=== PATIENT | male | born 1945 ===

== ENCOUNTER 2017-04-18 10:19 | Day surgery (SDC) | payer OTHER ==
[2016-10-30 13:05] VITALS: BMI 27.3
[2017-04-18] MEDS ORDERED: Lactated Ringer's 500 ML IV ONE (10:37)
[2017-04-18] MEDS ORDERED: Propofol 10 mg/ml Inj (20 ML) ONE ×2 (10:46→11:03)
[2017-04-18 10:59] VITALS: O2SAT 99
[2017-04-18 11:49] VITALS: BP 101/58; PULSE 60; RESP 20; TEMP 97
== END 2017-04-18 13:43 | disposition home or self-care (01) ==
LOC: H.ENDO 10:19
PROVIDERS: ATTEND Internal Medicine Gastroenterology
DX: Z12.11 Encounter for screening for malignant neoplasm of colon (principal); I10 Essential (primary) hypertension; K64.0 First degree hemorrhoids

== ENCOUNTER 2017-07-31 15:41 | Emergency (ER) | payer SELFPAY ==
[2017-07-31 15:41] VITALS: BMI 27.3
[2017-07-31 16:13] VITALS: BP 126/77; PULSE 80; RESP 16; TEMP 98; O2SAT 97
[2017-07-31] MEDS ORDERED: Albuterol-Ipratrop 3 mg / 0.5 (3 ml) UD INH STA (16:39)
[2017-07-31] MEDS ORDERED: Albuterol-Ipratrop 3 mg / 0.5 (3 ml) UD ONE (16:56)
--- NOTE | 2017-07-31 17:00 | ED PDOC ---
HPI: CCC, URI, Sore Throat Time Seen by Provider: 07/31/17 16:05 Chief Complaint (Nursing): ENT Problem Chief Complaint (Provider): ENT Problem History Per: Patient History/Exam Limitations: no limitations Onset/Duration Of Symptoms: Days (x1) Current Symptoms Are (Timing): Still Present Additional Complaint(s): Benja Marte is a 71 year old male with previous medical history of hypertension and hypercholesterolemia, who presents to the emergency department with a complaint of bilateral ear pain, sore throat and nasal congestion ongoing since 1100 today. Denied any fever or chills. Patient stated he took an OTC herbal flu medication for symptom relief. PMD: Jagdeep Peterson MD Past Medical History Reviewed: Historical Data, Nursing Documentation, Vital Signs Vital Signs: Last Vital Signs Temp 98 F 07/31/17 16:11 Pulse 80 07/31/17 16:11 Resp 16 07/31/17 16:11 BP 126/77 07/31/17 16:11 Pulse Ox 97 07/31/17 17:03 - Medical History PMH: HTN, Hypercholesterolemia Denies: Diabetes, Chronic Kidney Disease - Surgical History Surgical History: Appendectomy - Family History Family History: States: Unknown Family Hx - Social History Current smoker - smoking cessation education provided: No Ex-Smoker (has not smoked in the last 12 months): No Alcohol: None Drugs: Denies - Home Medications Home Medications: Ambulatory Orders Medication Instructions Recorded Enalapril Maleate [Enalapril] 10 mg PO DAILY 06/09/15 - Allergies Allergies/Adverse Reactions: Allergies Allergy/AdvReac Type Severity Reaction Status Date / Time No Known Allergies Allergy Verified 07/31/17 16:11 Review of Systems ROS Statement: Except As Marked, All Systems Reviewed And Found Negative Constitutional: Negative for: Fever, Chills ENT: Positive for: Ear Pain (bilateral), Nose Congestion, Throat Pain Physical Exam - Reviewed Nursing Documentation Reviewed: Yes Vital Signs Reviewed: Yes - Physical Exam Appears: Positive for: Well, Non-toxic, No Acute Distress Head Exam: Positive for: ATRAUMATIC, NORMAL INSPECTION, NORMOCEPHALIC ENT: Positive for: TM Is/Are (Erythematous right TM; left TM is within normal limits). Negative for: Normal ENT Inspection, Sinus Pain/Drainage, Pharyngeal Erythema, Tonsillar Swelling Cardiovascular/Chest: Positive for: Regular Rate, Rhythm, Chest Non Tender Respiratory: Positive for: Normal Breath Sounds. Negative for: Decreased Breath Sounds, Wheezing, Respiratory Distress Neurologic/Psych: Positive for: Alert (x3), Oriented - ECG O2 Sat by Pulse Oximetry: 97 (RA) Pulse Ox Interpretation: Normal Medical Decision Making Medical Decision Making: Initial Impression: URROSSY Mosley Initial Plan: * Chest X-Ray * Duoneb 3ml INH CXR: NAD, as read by LACY Scribe Attestation: Documented by Narda Dorantes, acting as a scribe for Jessie Palma Provider Scribe Attestation: All medical record entries made by the Scribe were at my direction and personally dictated by me. I have reviewed the chart and agree that the record accurately reflects my personal performance of the history, physical exam, medical decision making, and the department course for this patient. I have also personally directed, reviewed, and agree with the discharge instructions and disposition. Disposition - Clinical Impression Clinical Impression: Otitis media, Upper respiratory infection - Patient ED Disposition Is Patient to be Admitted: No - Disposition Disposition: Routine/Home Disposition Time: 17:25 Condition: GOOD Forms: [employer] (Turkmen) - POA Present On Arrival: None
--- NOTE | 2017-07-31 17:04 | RAD ---
HISTORY: sob, cough x 3 w COMPARISON: 10/07/2016 TECHNIQUE: Chest PA and lateral FINDINGS: LUNGS: No active pulmonary disease. PLEURA: No significant pleural effusion identified. No pneumothorax apparent. CARDIOVASCULAR: Normal. OSSEOUS STRUCTURES: No significant abnormalities. VISUALIZED UPPER ABDOMEN: Normal. OTHER FINDINGS: None. IMPRESSION: No active disease.
== END 2017-07-31 17:32 | disposition home or self-care (01) ==
LOC: H.ER 15:41
DX: H66.90 Otitis media, unspecified, unspecified ear (principal); J06.9 Acute upper respiratory infection, unspecified; E78.00 Pure hypercholesterolemia, unspecified; I10 Essential (primary) hypertension

== ENCOUNTER 2017-10-10 10:26 | Emergency (ER) | payer SELFPAY ==
[2017-10-10 10:26] VITALS: BMI 27.3
[2017-10-10 11:06] VITALS: BP 139/83; PULSE 85; RESP 18; TEMP 98.9; O2SAT 97
[2017-10-10 12:22] LABS: HEMOGLOBIN 15.7 g/dL (12.0-18.0); MEAN CELL VOLUME 88.6 fl (80.0-94.0); MEAN CORPUSCULAR HEMOGLOBIN 30.1 pg (27.0-31.0); MEAN CORPUSCULAR HGB CONC 33.9 g/dL (33.0-37.0); RBC 5.22 Mil/uL (4.40-5.90); RED CELL DISTRIBUTION WIDTH 13.5 % (11.5-14.5); WHITE BLOOD COUNT 8.2 K/uL (4.8-10.8)
[2017-10-10 12:31] LABS: ALB/GLOB RATIO 1.4 (1.0-2.1); ALBUMIN 4.5 g/dL (3.5-5.0); ALT/SGPT 44 U/L (21-72); AST/SGOT 34 U/L (17-59); BLOOD UREA NITROGEN 15 mg/dl (9-20); CALCIUM 9.8 mg/dL (8.4-10.2); GFR AFRICAN-AMERICAN > 60; GFR NON-AFRICAN AMERICAN > 60
--- NOTE | 2017-10-10 13:33 | ED PDOC ---
HPI: CCC, URI, Sore Throat Time Seen by Provider: 10/10/17 11:14 Chief Complaint (Nursing): ENT Problem Chief Complaint (Provider): throat pain, runny nose, dizziness History Per: Patient History/Exam Limitations: no limitations Onset/Duration Of Symptoms: Days (3) Current Symptoms Are (Timing): Still Present Location Of Pain: None Sick Contacts (Context): None Associated Symptoms: Sore Throat. denies: Fever, Chills, Cough, Sputum, Myalgias, Vomiting, Diarrhea Ear Symptoms: Bilateral: None Past Medical History Reviewed: Historical Data, Nursing Documentation, Vital Signs Vital Signs: Last Vital Signs Temp 98.9 F 10/10/17 11:04 Pulse 85 10/10/17 11:04 Resp 18 10/10/17 11:04 BP 139/83 10/10/17 11:04 Pulse Ox 97 10/10/17 11:04 - Medical History PMH: HTN, Hypercholesterolemia Denies: Diabetes, Chronic Kidney Disease - Surgical History Surgical History: Appendectomy - Family History Family History: States: Unknown Family Hx - Living Arrangements Living Arrangements: With Family - Social History Current smoker - smoking cessation education provided: No Alcohol: None Drugs: Denies - Home Medications Home Medications: Ambulatory Orders Medication Instructions Recorded Enalapril Maleate [Enalapril] 10 mg PO DAILY 06/09/15 Amoxicillin/Clavulanate [Augmentin 1 tab PO BID #14 tab 07/31/17 875 MG-125 MG] Guaifenesin/Pseudoephedrne HCl 1 tab PO DAILY PRN #30 ter 07/31/17 [Mucinex D 600 mg-60 mg] Azithromycin 250 mg PO DAILY #6 tab 10/10/17 - Allergies Allergies/Adverse Reactions: Allergies Allergy/AdvReac Type Severity Reaction Status Date / Time No Known Allergies Allergy Verified 07/31/17 16:11 Review of Systems ROS Statement: Except As Marked, All Systems Reviewed And Found Negative Constitutional: Negative for: Fever, Chills Cardiovascular: Negative for: Chest Pain Respiratory: Negative for: Cough, Shortness of Breath Physical Exam - Reviewed Nursing Documentation Reviewed: Yes Vital Signs Reviewed: Yes - Physical Exam Appears: Positive for: Well, Non-toxic, No Acute Distress Head Exam: Positive for: ATRAUMATIC, NORMAL INSPECTION, NORMOCEPHALIC Skin: Positive for: Normal Color, Warm, DRY Eye Exam: Positive for: Normal appearance ENT: Positive for: Normal ENT Inspection Neck: Positive for: Normal, Painless ROM Cardiovascular/Chest: Positive for: Regular Rate, Rhythm Respiratory: Positive for: Normal Breath Sounds. Negative for: Accessory Muscle Use, Respiratory Distress Gastrointestinal/Abdominal: Positive for: Normal Exam, Bowel Sounds, Soft Back: Positive for: Normal Inspection Extremity: Positive for: Normal ROM Neurologic/Psych: Positive for: Alert, Oriented - Laboratory Results Result Diagrams: 10/10/17 12:15 10/10/17 12:15 - ECG O2 Sat by Pulse Oximetry: 97 Disposition - Clinical Impression Clinical Impression: Throat pain - Patient ED Disposition Is Patient to be Admitted: No Counseled Patient/Family Regarding: Diagnosis, Need For Followup, Rx Given - Disposition Disposition: Routine/Home Disposition Time: 13:37 Condition: GOOD Prescriptions: Azithromycin 250 mg PO DAILY #6 tab Instructions: Pharyngitis (ED) Print Language: SERBIAN
== END 2017-10-10 14:00 | disposition home or self-care (01) ==
LOC: H.ER 10:26
DX: J02.9 Acute pharyngitis, unspecified (principal); E78.00 Pure hypercholesterolemia, unspecified; I10 Essential (primary) hypertension

== ENCOUNTER 2018-04-29 09:41 | Emergency (ER) | payer SELFPAY ==
[2018-04-29 09:42] VITALS: BMI 27.3
[2018-04-29 09:53] VITALS: PULSE 72; RESP 19; TEMP 97.5; O2SAT 97
--- NOTE | 2018-04-29 10:13 | ED PDOC ---
HPI: Back Time Seen by Provider: 04/29/18 10:00 Chief Complaint (Nursing): Back Pain Chief Complaint (Provider): Back pain History Per: Patient History/Exam Limitations: no limitations Onset/Duration Of Symptoms: Days (2) Current Symptoms Are (Timing): Still Present Additional Complaint(s): Pt. with lower back and upper buttox pain. Ongoing after lifting a heavy box 2 days ago. No numbness, tingles, weakness, leg pain. No incontinence or constipation. No abd pain or dysuria. Asking for a work note. Ambulating with the pain. Past Medical History Reviewed: Nursing Documentation, Vital Signs Vital Signs: Last Vital Signs Temp 97.5 F L 04/29/18 09:52 Pulse 72 04/29/18 09:52 Resp 19 04/29/18 09:52 BP 151/84 H 04/29/18 09:52 Pulse Ox 97 04/29/18 09:52 - Medical History PMH: HTN, Hypercholesterolemia Denies: Diabetes, Chronic Kidney Disease - Surgical History Surgical History: Appendectomy - Family History Family History: States: Unknown Family Hx - Living Arrangements Living Arrangements: With Family - Social History Alcohol: None Drugs: Denies - Home Medications Home Medications: Ambulatory Orders Medication Instructions Recorded Enalapril Maleate [Enalapril] 10 mg PO DAILY 06/09/15 Amoxicillin/Clavulanate [Augmentin 1 tab PO BID #14 tab 07/31/17 875 MG-125 MG] Guaifenesin/Pseudoephedrne HCl 1 tab PO DAILY PRN #30 ter 07/31/17 [Mucinex D 600 mg-60 mg] Azithromycin 250 mg PO DAILY #6 tab 10/10/17 Ibuprofen [Motrin] 600 mg PO TID 7 Days tab 04/29/18 - Allergies Allergies/Adverse Reactions: Allergies Allergy/AdvReac Type Severity Reaction Status Date / Time No Known Allergies Allergy Verified 04/29/18 10:08 Review of Systems ROS Statement: Except As Marked, All Systems Reviewed And Found Negative Musculoskeletal: Positive for: Back Pain Physical Exam - Reviewed Nursing Documentation Reviewed: Yes Vital Signs Reviewed: Yes - Physical Exam Appears: Positive for: Non-toxic, No Acute Distress Head Exam: Positive for: ATRAUMATIC, NORMAL INSPECTION, NORMOCEPHALIC Skin: Positive for: Normal Color, Warm, DRY Eye Exam: Positive for: EOMI, Normal appearance, PERRL ENT: Positive for: Normal ENT Inspection Neck: Positive for: Normal, Painless ROM Cardiovascular/Chest: Positive for: Regular Rate, Rhythm Respiratory: Positive for: CNT, Normal Breath Sounds Gastrointestinal/Abdominal: Positive for: Normal Exam, Soft. Negative for: Tenderness Back: Positive for: Other (mild across lower back tufter). Negative for: L CVA Tenderness, R CVA Tenderness Extremity: Positive for: Normal ROM, Other (straight leg neg b/l). Negative for : Tenderness, Pedal Edema Neurologic/Psych: Positive for: Alert, Oriented - ECG O2 Sat by Pulse Oximetry: 97 Pulse Ox Interpretation: Normal - Radiology X-Ray: Read By Radiologist X-Ray Interpretation: Other (degenerative disc disease) - Progress ED Course And Treament: 1051: Stable. AAOx3. Pain free. Tolerated PO. Ambulated with no issues. Disposition - Clinical Impression Clinical Impression: Degenerative disc disease - Patient ED Disposition Is Patient to be Admitted: No Counseled Patient/Family Regarding: Studies Performed, Diagnosis, Need For Followup, Rx Given - Disposition Referrals: [facility] [Outside] - 04/30/18 Disposition: Routine/Home Disposition Time: 10:52 Condition: STABLE Additional Instructions: Return if not better in 3 days. Prescriptions: Ibuprofen [Motrin] 600 mg PO TID 7 Days tab Instructions: Degenerative Disc Disease Forms: [facility] ED School/Work Excuse Print Language: MARSHALLESE
--- NOTE | 2018-04-29 10:46 | RAD ---
Date of service: 04/29/2018 PROCEDURE: Radiographs of the Lumbar Spine. HISTORY: back pain COMPARISON: 06/11/2009 FINDINGS: BONES: The vertebral bodies are maintained in height. The transverse processes and posterior elements appear intact. Normal alignment is maintained. There is mild dextroscoliosis. This was not evident on earlier examination. DISC SPACES: There is narrowing of the L2-3 and L4-5 intervertebral disc spaces consistent with degenerative disc disease. The remaining disc spaces appear maintained in height. OTHER FINDINGS: None. IMPRESSION: Degenerative disc disease at L2-3 and L4-5. Mild dextroscoliosis. No evidence of fracture.
[2018-04-29 11:30] VITALS: BP 139/84
== END 2018-04-29 11:14 | disposition home or self-care (01) ==
LOC: H.ER 09:41
DX: M51.36 Other intervertebral disc degeneration, lumbar region (principal); I10 Essential (primary) hypertension; E78.00 Pure hypercholesterolemia, unspecified
CPT/HCPCS: 72114; 96372; 99282; J1885

== ENCOUNTER 2018-08-05 08:44 | Emergency (ER) | payer SELFPAY ==
[2018-08-05 08:44] VITALS: BMI 27.3
--- NOTE | 2018-08-05 11:30 | ED PDOC ---
HPI: Back Time Seen by Provider: 08/05/18 09:00 Chief Complaint (Nursing): Back Pain Chief Complaint (Provider): Back Pain History Per: [employer] (Xavier Manzano: [id number]) Onset/Duration Of Symptoms: Days (x2 days) Current Symptoms Are (Timing): Still Present Additional Complaint(s): Benja Joel is a 72 year old male with a past medical history of Hypertension, and Hyperlipidemia, who presents to the emergency department complaining of hip and back pain, worse when he walks, onset x2 days. Patient states he also feels numbness in the sole of his foot. He states he came in x5 months ago with similar symptoms and was given injection that helped him. pt is requesting that same injection for pain. 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 He was also seen in this ED on 07/30 complaining of lower back and upper buttock pain and was diagnosed with degenerative disc disease. He denies any urinary symptoms, fall, trauma, urinary or bowel incontinence. PMD: Dr. Jagdeep Peterson in [facility] Past Medical History Reviewed: Historical Data, Nursing Documentation, Vital Signs Vital Signs: Last Vital Signs Temp 98.2 F 08/05/18 08:59 Pulse 76 08/05/18 08:59 Resp 17 08/05/18 08:59 BP 131/80 08/05/18 08:59 Pulse Ox 97 08/05/18 08:59 - Medical History PMH: HTN, Hypercholesterolemia Denies: Diabetes, Chronic Kidney Disease Other PMH: Degenerative disc disease - Surgical History Surgical History: Appendectomy - Family History Family History: States: Unknown Family Hx - Social History Current smoker - smoking cessation education provided: No Ex-Smoker (has not smoked in the last 12 months): No Alcohol: None Drugs: Denies - Home Medications Home Medications: Ambulatory Orders Medication Instructions Recorded Enalapril Maleate [Enalapril] 10 mg PO DAILY 06/09/15 Amoxicillin/Clavulanate [Augmentin 1 tab PO BID #14 tab 07/31/17 875 MG-125 MG] Guaifenesin/Pseudoephedrne HCl 1 tab PO DAILY PRN #30 ter 07/31/17 [Mucinex D 600 mg-60 mg] RX: Azithromycin 250 mg PO DAILY #6 tab 10/10/17 Ibuprofen [Motrin] 600 mg PO TID 7 Days tab 04/29/18 - Allergies Allergies/Adverse Reactions: Allergies Allergy/AdvReac Type Severity Reaction Status Date / Time No Known Allergies Allergy Verified 04/29/18 10:08 Review of Systems ROS Statement: Except As Marked, All Systems Reviewed And Found Negative Genitourinary Male: Negative for: Dysuria, Incontinence (urinary and bowel ) Musculoskeletal: Positive for: Back Pain, Other (hip pain) Neurological: Positive for: Numbness (in sole of foot ) Physical Exam - Reviewed Nursing Documentation Reviewed: Yes Vital Signs Reviewed: Yes - Physical Exam Appears: Positive for: Non-toxic, No Acute Distress Head Exam: Positive for: ATRAUMATIC, NORMOCEPHALIC Skin: Positive for: Normal Color, Warm, Dry Eye Exam: Positive for: Normal appearance, EOMI, PERRL ENT: Positive for: Normal ENT Inspection Neck: Positive for: Normal, Painless ROM, Supple Cardiovascular/Chest: Positive for: Regular Rate, Rhythm. Negative for: Murmur Respiratory: Positive for: Normal Breath Sounds. Negative for: Respiratory Distress Gastrointestinal/Abdominal: Positive for: Normal Exam, Soft. Negative for: Tenderness Back: Positive for: Normal Inspection. 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 Negative for: Motor/Sensory Deficits, Aphasia, Facial Droop, Other (saddle anesthesia ) - ECG O2 Sat by Pulse Oximetry: 97 (RA) Pulse Ox Interpretation: Normal Medical Decision Making Medical Decision Making: Time: 10:21 Initial Plan: back pain, acute on chronic, no recent falls --Toradol 60 mg IM 13:09 Patient is eating food and feeling better. Scribe Attestation: Documented by Ross Fritz, acting as a scribe for Mauricio Cotto MD. Provider Scribe Attestation: All medical record entries made by the Scribe were at my direction and personally dictated by me. I have reviewed the chart and agree that the record accurately reflects my personal performance of the history, physical exam, medical decision making, and the department course for this patient. I have also personally directed, reviewed, and agree with the discharge instructions and disposition. Disposition - Clinical Impression Clinical Impression: Chronic back pain - Patient ED Disposition Is Patient to be Admitted: No Counseled Patient/Family Regarding: Studies Performed, Diagnosis, Need For Followup - Disposition Disposition: Routine/Home Disposition Time: 13:00 Condition: IMPROVED Additional Instructions: follow up in the clinic in 1-2 days for reevaluation return to the ED with any worsening or concerning symptoms Instructions: Chronic Pain Forms: [employer] [facility] (Pashto), [employer] (Romanian), [facility] ED School/Work Excuse Print Language: KOSOVAN
[2018-08-05 13:19] VITALS: BP 124/80; PULSE 58; RESP 16; TEMP 97.5
[2018-08-05 13:32] VITALS: O2SAT 97
== END 2018-08-05 13:17 | disposition home or self-care (01) ==
LOC: H.ER 08:44
DX: M54.9 Dorsalgia, unspecified (principal)
CPT/HCPCS: 96372; 99284; J1885

== ENCOUNTER 2018-09-20 07:14 | Emergency (ER) | payer SELFPAY ==
--- NOTE | 2018-09-20 07:54 | ED PDOC ---
HPI: Back Time Seen by Provider: 09/20/18 07:21 History Per: Patient Onset/Duration Of Symptoms: Days (2) Quality Of Discomfort: Aching Severity: Mild Previous Symptoms: Back Pain Associated Symptoms: None Exacerbating Factor(s): Movement Additional Complaint(s): Right sided low back pain x 2 days. Denies injury or heavy lifting. Pain is nonradiating, worse on movement. Denies urinary sxs. Denies fever. Had left sided chest pain on Saturday which has resolved. Denies SOB. Past Medical History - Medical History PMH: HTN, Hypercholesterolemia Denies: Diabetes, Chronic Kidney Disease - Surgical History Surgical History: Appendectomy - Family History Family History: States: Unknown Family Hx - Home Medications Home Medications: Ambulatory Orders Medication Instructions Recorded Enalapril Maleate [Enalapril] 10 mg PO DAILY 06/09/15 Amoxicillin/Clavulanate [Augmentin 1 tab PO BID #14 tab 07/31/17 875 MG-125 MG] Guaifenesin/Pseudoephedrne HCl 1 tab PO DAILY PRN #30 ter 07/31/17 [Mucinex D 600 mg-60 mg] Azithromycin 250 mg PO DAILY #6 tab 10/10/17 Ibuprofen [Motrin] 600 mg PO TID 7 Days tab 04/29/18 Cyclobenzaprine [Cyclobenzaprine 10 mg PO TID #10 tab 09/20/18 HCl] Naproxen [Naprosyn] 500 mg PO Q12H #20 tab 09/20/18 - Allergies Allergies/Adverse Reactions: Allergies Allergy/AdvReac Type Severity Reaction Status Date / Time No Known Allergies Allergy Verified 04/29/18 10:08 Review of Systems ROS Statement: Except As Marked, All Systems Reviewed And Found Negative Genitourinary Male: Negative for: Dysuria, Frequency Musculoskeletal: Positive for: Back Pain Neurological: Negative for: Weakness, Numbness Physical Exam - Reviewed Nursing Documentation Reviewed: Yes Vital Signs Reviewed: Yes - Physical Exam Appears: Positive for: Non-toxic, No Acute Distress Head Exam: Positive for: ATRAUMATIC, NORMAL INSPECTION, NORMOCEPHALIC Skin: Positive for: Normal Color, Warm, DRY Eye Exam: Positive for: EOMI, Normal appearance, PERRL ENT: Positive for: Normal ENT Inspection Neck: Positive for: Normal, Painless ROM Cardiovascular/Chest: Positive for: Regular Rate, Rhythm Respiratory: Positive for: CNT, Normal Breath Sounds Gastrointestinal/Abdominal: Positive for: Normal Exam, Soft Back: Positive for: Normal Inspection, Other (Right paralumbar tenderness and spasm). Negative for: Vertebral Tenderness Extremity: Positive for: Normal ROM Neurologic/Psych: Positive for: Alert, Oriented. Negative for: Motor/Sensory Deficits Medical Decision Making Medical Decision Making: Low back pain, most likely musculoskeltal, will obtain urine dip and LS spine. EKG reveals NSR with inverted T waves laterally. Does not appear to be acute, but no previous EKG to compare with. Will obtain Troponin but unlikely that this represents acute ischemia as pt is chest pain free today. Disposition - Clinical Impression Clinical Impression: Back strain, Low back pain - Patient ED Disposition Is Patient to be Admitted: No Counseled Patient/Family Regarding: Studies Performed, Diagnosis, Need For Followup, Rx Given - Disposition Referrals: [facility] [Outside] Disposition: Routine/Home Disposition Time: 10:14 Condition: FAIR Prescriptions: Cyclobenzaprine [Cyclobenzaprine HCl] 10 mg PO TID #10 tab Naproxen [Naprosyn] 500 mg PO Q12H #20 tab Instructions: Low Back Pain in Adults Print Language: GUYANESE
--- NOTE | 2018-09-20 09:48 | RAD ---
Date of service: 09/20/2018 PROCEDURE: Radiographs of the Lumbar Spine. HISTORY: Back pain COMPARISON: No prior. FINDINGS: BONES: Normal alignment. No listhesis. No fracture. No destructive bony lesion appreciable. DISC SPACES: Mild dextroscoliosis obscures evaluation of intervertebral disc heights which are definitively diminished L2-3 and L3-4 toward the left mild narrowing at L4-5 suspected though not definite. OTHER FINDINGS: None. IMPRESSION: Mild dextroscoliosis. Multilevel lumbar spondylosis. No fracture or spondylolisthesis evident.
[2018-09-20 11:40] VITALS: BP 155/95; PULSE 62; RESP 16; TEMP 97.7; O2SAT 98
== END 2018-09-20 11:10 | disposition home or self-care (01) ==
LOC: H.ER 07:14
DX: M54.5 Low back pain (principal); S39.012A Strain of muscle, fascia and tendon of lower back, initial encounter; X58.XXXA Exposure to other specified factors, initial encounter; Y92.89 Other specified places as the place of occurrence of the external cause; E78.00 Pure hypercholesterolemia, unspecified; I10 Essential (primary) hypertension

== ENCOUNTER 2018-11-02 01:40 | Emergency (ER) | payer SELFPAY ==
[2018-11-02 02:14] VITALS: O2SAT 97
[2018-11-02] MEDS ORDERED: Sodium Chloride 0.9% 1,000 ML IV STA (02:20)
[2018-11-02] MEDS ORDERED: Dexamethasone 10 MG in Sodium Chloride 0.9% 50 ML IV STA (02:28)
--- NOTE | 2018-11-02 02:45 | ED PDOC ---
History of Present Illness History of Present Illness: 72 year old male with a history of HTN presents to the ED with a fever and sore throat for three days. Patient reports worsening sore throat and fever associated with a dry cough and pain on swallowing. He took Amoxicillin and no other medications. Patient received the flu vaccine in August. PMD: Clinic HPI: Influenza Time Seen by Provider: 11/02/18 02:09 Chief Complaint: ENT Problem Chief Complaint (Provider): ENT Problem History Per: Patient Exam Limitations: no limitations Onset/Duration Of Symptoms: Days (x 3) Symptoms include: fever, sore throat, cough Risk factors for flu complications: Yes: adult > 65 years Past Medical History Reviewed: Historical Data, Nursing Documentation, Vital Signs Vital Signs: Last Vital Signs Temp 100.1 F H 11/02/18 02:10 Pulse 91 H 11/02/18 02:10 Resp 16 11/02/18 02:10 BP 142/85 11/02/18 02:10 Pulse Ox 97 11/02/18 02:10 - Medical History PMH: HTN, Hypercholesterolemia Denies: Diabetes, Chronic Kidney Disease - Surgical History Surgical History: Appendectomy - Family History Family History: States: Unknown Family Hx - Immunization History Hx Influenza Vaccination: Yes (in August) - Home Medications Home Medications: Ambulatory Orders Medication Instructions Recorded Enalapril Maleate [Enalapril] 10 mg PO DAILY 06/09/15 Amoxicillin/Clavulanate [Augmentin 1 tab PO BID #14 tab 07/31/17 875 MG-125 MG] Guaifenesin/Pseudoephedrne HCl 1 tab PO DAILY PRN #30 ter 07/31/17 [Mucinex D 600 mg-60 mg] RX: Azithromycin 250 mg PO DAILY #6 tab 10/10/17 Ibuprofen [Motrin] 600 mg PO TID 7 Days tab 04/29/18 Cyclobenzaprine [Cyclobenzaprine 10 mg PO TID #10 tab 09/20/18 HCl] Naproxen [Naprosyn] 500 mg PO Q12H #20 tab 09/20/18 Benzonatate [Tessalon Perle] 100 mg PO TID PRN #15 capsule 11/02/18 Oseltamivir Cap [Tamiflu] 75 mg PO BID #10 cap 11/02/18 RX: predniSONE [predniSONE Tab] 60 mg PO QAM #12 tab 11/02/18 - Allergies Allergies/Adverse Reactions: Allergies Allergy/AdvReac Type Severity Reaction Status Date / Time No Known Allergies Allergy Verified 04/29/18 10:08 Review of Systems ROS Statement: Except As Marked, All Systems Reviewed And Found Negative Constitutional: Positive for: Fever ENT: Positive for: Throat Pain, Throat Swelling Respiratory: Positive for: Cough Physical Exam - Reviewed Nursing Documentation Reviewed: Yes Vital Signs Reviewed: Yes - Physical Exam Appears: Positive for: No Acute Distress, Uncomfortable (febrile) Head Exam: Positive for: ATRAUMATIC, NORMAL INSPECTION, NORMOCEPHALIC Skin: Positive for: Normal Color, Warm, Dry. Negative for: Rash Eye Exam: Positive for: EOMI, Normal appearance, PERRL ENT: Positive for: Tonsillar Swelling (bilateral tonsillar swelling). Negative for: Tonsillar Exudate Neck: Positive for: Painless ROM ((+) bilateral anterior cervical lymphade nopathy). Negative for: Normal, Supple Cardiovascular/Chest: Positive for: Tachycardia (with regular rhythm) Respiratory: Positive for: Normal Breath Sounds. Negative for: Respiratory Distress Gastrointestinal/Abdominal: Positive for: Normal Exam, Soft. Negative for: Tenderness Back: Positive for: Normal Inspection. Negative for: L CVA Tenderness, R CVA Tenderness Extremity: Positive for: Normal ROM (x 4). Negative for: Deformity Neurologic/Psych: Positive for: Alert, Oriented (x 3). Negative for: Motor/Sensory Deficits Medical Decision Making Medical Decision Makin:19 Impression: 72 year old male with acute pharyngitis Initial Plan: --CMP --CBC --lactic acid --CXR --Decadron 10 mg IV --NS IV 1,000 mls --Toradol 15 mg IM --Tylenol 975 mg PO --Blood cx --Influenza AB --Rapid strep Scribe Attestation: Documented by Olivia Molina acting as a scribe for Nikolas Ernandez MD Provider Scribe Attestation: All medical record entries made by the Scribe were at my direction and personally dictated by me. I have reviewed the chart and agree that the record accurately reflects my personal performance of the history, physical exam, medical decision making, and the department course for this patient. I have also personally directed, reviewed, and agree with the discharge instructions and disposition. - Laboratory Results Result Diagrams: 11/02/18 02:50 11/02/18 02:50 - ECG O2 Sat by Pulse Oximetry: 97 Disposition - Clinical Impression Clinical Impression: Influenza-like illness - Disposition Disposition: Routine/Home Disposition Time: 04:00 Condition: STABLE Prescriptions: Benzonatate [Tessalon Perle] 100 mg PO TID PRN #15 capsule PRN Reason: Cough Oseltamivir Cap [Tamiflu] 75 mg PO BID #10 cap RX: predniSONE [predniSONE Tab] 60 mg PO QAM #12 tab Instructions: Flu, Viral Syndrome (DC) Forms: [email or web address] [facility] (Maltese), [facility] ED School/Work Excuse Print Language: VENEZUELAN
[2018-11-02 03:22] LABS: BASO # 0.1 K/uL (0.0-0.2); BASO % 0.7 % (0.0-2.0); EOS # 0.2 K/uL (0.0-0.7); EOS % 2.1 % (0.0-4.0); HEMOGLOBIN 15.4 g/dL (12.0-18.0); LYMPH # 1.4 K/uL (1.0-4.3); LYMPH % 16.5 % (20.0-40.0); MEAN CELL VOLUME 88.8 fl (80.0-94.0); MEAN CORPUSCULAR HGB CONC 33.7 g/dL (33.0-37.0); MEAN PLATELET VOLUME 9.5 fl (7.2-11.7); MONO # 0.5 K/uL (0.0-0.8); MONO % 6.1 % (0.0-10.0); NEUT # 6.1 K/uL (1.8-7.0); NEUT % 74.6 % (50.0-75.0); RBC 5.14 Mil/uL (4.40-5.90); RED CELL DISTRIBUTION WIDTH 13.7 % (11.5-14.5); WHITE BLOOD COUNT 8.2 K/uL (4.8-10.8)
[2018-11-02 03:34] LABS: ALB/GLOB RATIO 1.3 (1.0-2.1); ALBUMIN 4.5 g/dL (3.5-5.0); ALT/SGPT 45 U/L (21-72); AST/SGOT 30 U/L (17-59); BLOOD UREA NITROGEN 16 mg/dl (9-20); CALCIUM 9.4 mg/dL (8.4-10.2); GFR NON-AFRICAN AMERICAN > 60
[2018-11-02 05:30] VITALS: BP 125/83; PULSE 82; RESP 18; TEMP 98.2
--- NOTE | 2018-11-02 11:03 | RAD ---
Date of service: 11/02/2018 HISTORY: cough COMPARISON: 08/05/2017 FINDINGS: LUNGS: No active pulmonary disease. PLEURA: No significant pleural effusion identified, no pneumothorax apparent. CARDIOVASCULAR: No radiographic findings to suggest acute or significant cardiovascular disease. Atherosclerotic calcifications identified primarily aortic arch. OSSEOUS STRUCTURES: No significant abnormalities. VISUALIZED UPPER ABDOMEN: Normal. OTHER FINDINGS: None. IMPRESSION: No active disease. No significant interval change compared to the prior examination(s).
== END 2018-11-02 04:30 | disposition home or self-care (01) ==
LOC: H.ER 01:40
DX: J11.1 Influenza due to unidentified influenza virus with other respiratory manifestations (principal); I10 Essential (primary) hypertension
CPT/HCPCS: 71045; 80053; 83605; 85025; 87040; 87070; 87430; 87804; 96361; 96374; 96375; 99283; J1100; J1885; J7030

== ENCOUNTER 2019-01-06 09:00 | Emergency (ER) | payer SELFPAY ==
[2019-01-06 09:06] VITALS: BP 152/81; PULSE 79; RESP 17; TEMP 98.5; O2SAT 98
[2019-01-06 09:07] VITALS: BMI 26.2
--- NOTE | 2019-01-06 10:59 | ED PDOC ---
HPI: Back Time Seen by Provider: 01/06/19 09:14 Chief Complaint (Nursing): Back Pain Chief Complaint (Provider): Back pain, chronic History Per: Patient History/Exam Limitations: no limitations Onset/Duration Of Symptoms: Persistent Current Symptoms Are (Timing): Still Present Previous Symptoms: Chronic Pain Additional History Per: Patient Additional Complaint(s): 73yo male, with history of hypertension and high cholesterol, comes to ER reporting upper back pain, present intermittently for the past month. Patient is being followed by Dr. Peterson, was given medication for his pain with intermittent relief. Patient also reports "tingly feeling" but states that has been unchanged for a month as well. He also reports a chronic cough x 1 month with rib pain. He states he is occasionally unsteady while walking, but denies any trauma. Overall, patient denies any changes in his symptoms over the past month. Past Medical History Reviewed: Historical Data, Nursing Documentation, Vital Signs Vital Signs: Last Vital Signs Temp 98.5 F 01/06/19 09:05 Pulse 79 01/06/19 09:05 Resp 17 01/06/19 09:05 BP 152/81 H 01/06/19 09:05 Pulse Ox 98 01/06/19 09:05 - Medical History PMH: HTN, Hypercholesterolemia Denies: Diabetes, Chronic Kidney Disease - Surgical History Surgical History: Appendectomy - Family History Family History: States: Unknown Family Hx - Immunization History Hx Influenza Vaccination: Yes (in August) - Home Medications Home Medications: Ambulatory Orders Medication Instructions Recorded Enalapril Maleate [Enalapril] 10 mg PO DAILY 06/09/15 Amoxicillin/Clavulanate [Augmentin 1 tab PO BID #14 tab 07/31/17 875 MG-125 MG] Guaifenesin/Pseudoephedrne HCl 1 tab PO DAILY PRN #30 ter 07/31/17 [Mucinex D 600 mg-60 mg] Azithromycin 250 mg PO DAILY #6 tab 10/10/17 Ibuprofen [Motrin] 600 mg PO TID 7 Days tab 04/29/18 Cyclobenzaprine [Cyclobenzaprine 10 mg PO TID #10 tab 09/20/18 HCl] Naproxen [Naprosyn] 500 mg PO Q12H #20 tab 09/20/18 Benzonatate [Tessalon Perle] 100 mg PO TID PRN #15 capsule 11/02/18 Oseltamivir Cap [Tamiflu] 75 mg PO BID #10 cap 11/02/18 predniSONE [predniSONE Tab] 60 mg PO QAM #12 tab 11/02/18 Acetaminophen [Tylenol Extra 500 mg PO Q4 #40 tablet 01/06/19 Strength] - Allergies Allergies/Adverse Reactions: Allergies Allergy/AdvReac Type Severity Reaction Status Date / Time No Known Allergies Allergy Verified 01/06/19 09:05 Review of Systems ROS Statement: Except As Marked, All Systems Reviewed And Found Negative Respiratory: Positive for: Cough Musculoskeletal: Positive for: Back Pain Neurological: Negative for: Weakness, Numbness Physical Exam - Reviewed Nursing Documentation Reviewed: Yes Vital Signs Reviewed: Yes - Physical Exam Appears: Positive for: Non-toxic, No Acute Distress Head Exam: Positive for: ATRAUMATIC, NORMAL INSPECTION, NORMOCEPHALIC Skin: Positive for: Normal Color Eye Exam: Positive for: Normal appearance Neck: Positive for: Supple Cardiovascular/Chest: Positive for: Regular Rate, Rhythm Respiratory: Positive for: Normal Breath Sounds. Negative for: Respiratory Distress Gastrointestinal/Abdominal: Positive for: Soft Back: Positive for: Other (mild tenderness para spinal on upper back). Negative for: Vertebral Tenderness, Decreased ROM, Muscle Spasm Extremity: Positive for: Normal ROM Neurological/Psych: Positive for: Awake, Alert, Normal Tone. Negative for: Motor/Sensory Deficits - ECG O2 Sat by Pulse Oximetry: 98 (RA) Pulse Ox Interpretation: Normal Medical Decision Making Medical Decision Making: Exacerbation of chronic back pain; patient also complaining of rib pain with cough CXR reviewed, and is unremarkable Patient given Tylenol for pain, with improvement of symptoms Vital signs within normal limits Patient stable for discharge home, instructed to follow up with Dr. Peterson in 2- 3 days. ScribeAttestation: Documented byAshley Hutchins, acting as a scribe for Antonia Garcia MD. Provider ScribeAttestation: All medical record entries made by the Scribe were at my direction and personally dictated by me. I have reviewed the chart and agree that the record accurately reflects my personal performance of the history, physical exam, medical decision making, and the department course for this patient. I have also personally directed, reviewed, and agree with the discharge instructions and disposition. Disposition - Clinical Impression Clinical Impression: Chronic back pain, Cough - Disposition Referrals: Jagdeep Peterson MD [Staff Provider] - Disposition Time: 11:02 Condition: IMPROVED Additional Instructions: Take Tylenol as prescribed for pain. Follow up with Dr. Peterson for management of chronic back pain. Prescriptions: Acetaminophen [Tylenol Extra Strength] 500 mg PO Q4 #40 tablet Instructions: Upper Back Pain (DC), Cough, Runny Nose, and the Common Cold Forms: [facility] (Kazakh), [facility] (Botswanan), [facility] ED School/Work Excuse Print Language: INDONESIAN
--- NOTE | 2019-01-06 13:21 | RAD ---
Date of service: 01/06/2019 HISTORY: cough COMPARISON: 11/02/2018 TECHNIQUE: Chest PA and lateral views. Two views FINDINGS: LUNGS: No active pulmonary disease. PLEURA: No significant pleural effusion identified. No pneumothorax apparent. CARDIOVASCULAR: No aortic atherosclerotic calcification present. Normal cardiac size. No pulmonary vascular congestion. OSSEOUS STRUCTURES: No significant abnormalities. VISUALIZED UPPER ABDOMEN: Normal. OTHER FINDINGS: None. IMPRESSION: No active disease.
== END 2019-01-06 11:46 | disposition home or self-care (01) ==
LOC: H.ER 09:00
DX: M54.6 Pain in thoracic spine (principal); G89.29 Other chronic pain; R05 Cough; I10 Essential (primary) hypertension; E78.00 Pure hypercholesterolemia, unspecified